=== PATIENT | female | born 1950 | race Two or more races ===

== ENCOUNTER 2018-06-08 00:16 | Emergency (ER) | payer OTHER ==
[~2018-06-08] VITALS: Ht 157.5 cm; Wt 68.9 kg
[~2018-06-08 00:16] MED LIST: AVAPRO150 MG PO; CATAPRES0.1 MG; NORFLEX100 MG PO; NORVASC2.5 M1 PO; SYNTHROID75 MCG PO; TORADOL10 MG PO
== END 2018-06-08 03:01 | disposition home or self-care (01) ==
LOC: ER 00:16
DX: I10 Essential (primary) hypertension (principal); R07.89 Other chest pain

== ENCOUNTER 2018-07-14 08:03 | Outpatient (CLI) | payer OTHER | END 2018-07-14 08:18 | disposition home or self-care (01) | LOC: SONOGRAMA 08:03 | DX: E03.8 Other specified hypothyroidism (principal); E04.8 Other specified nontoxic goiter ==

== ENCOUNTER 2018-12-21 10:14 | Outpatient (CLI) | payer OTHER | END 2018-12-21 10:23 | disposition home or self-care (01) | LOC: RAD 501 10:14 | DX: S83.207S Unspecified tear of unspecified meniscus, current injury, left knee, sequela (principal) ==

== ENCOUNTER → 2019-01-05 | Outpatient (CLI) | payer OTHER | END | disposition home or self-care (01) | LOC: NUCLEAR 10:00 | DX: M81.0 Age-related osteoporosis without current pathological fracture (principal) ==

== ENCOUNTER 2019-09-13 09:04 | Outpatient (CLI) | payer OTHER | END 2019-09-13 09:08 | disposition home or self-care (01) | LOC: MAMO-SONO 09:04 | DX: Z12.31 Encounter for screening mammogram for malignant neoplasm of breast (principal); Z87.898 Personal history of other specified conditions; N63.10 Unspecified lump in the right breast, unspecified quadrant; N63.20 Unspecified lump in the left breast, unspecified quadrant ==

== ENCOUNTER 2019-09-20 00:26 | Emergency (ER) | payer OTHER ==
[~2019-09-20] VITALS: Ht 157.5 cm; Wt 66.7 kg
[2019-09-20] MEDS ORDERED: NAPROXEN SODIU220 M1 PO (00:45)
[2019-09-20] MEDS ORDERED: KETO10TA2 PO (01:19)
== END 2019-09-20 01:56 | disposition home or self-care (01) ==
LOC: ER 00:26
DX: G89.11 Acute pain due to trauma (principal); M25.561 Pain in right knee

== ENCOUNTER 2019-09-21 10:40 | Outpatient (CLI) | payer OTHER ==
[~2019-09-21 10:40] MED LIST changes: +KETO10TA2 PO; +NAPROXEN SODIU220 M1 PO
== END 2019-09-21 10:45 | disposition home or self-care (01) ==
LOC: RAD 10:40
DX: M79.672 Pain in left foot (principal); M79.671 Pain in right foot; M54.5 Low back pain

== ENCOUNTER 2019-12-13 09:34 | Outpatient (CLI) | payer OTHER | END 2019-12-13 10:00 | disposition home or self-care (01) | LOC: MRI 09:34 | DX: M25.561 Pain in right knee (principal); M54.40 Lumbago with sciatica, unspecified side | CPT/HCPCS: 72148; 73721 ==

== ENCOUNTER 2020-01-06 10:17 | Outpatient (CLI) | payer OTHER | END 2020-01-06 10:19 | disposition home or self-care (01) | LOC: SONOGRAMA 10:17 | DX: E03.8 Other specified hypothyroidism (principal); E04.2 Nontoxic multinodular goiter ==

== ENCOUNTER 2020-07-04 09:54 | Outpatient (CLI) | payer OTHER | END 2020-07-04 09:59 | disposition home or self-care (01) | LOC: RAD 09:54 | DX: M81.8 Other osteoporosis without current pathological fracture (principal) ==

== ENCOUNTER 2020-11-13 10:08 | Outpatient (CLI) | payer OTHER | END 2020-11-13 10:23 | disposition home or self-care (01) | LOC: NUCLEAR 10:08 | DX: M81.0 Age-related osteoporosis without current pathological fracture (principal) ==

== ENCOUNTER 2021-02-11 08:46 | Outpatient (CLI) | payer OTHER | END 2021-02-11 08:57 | disposition home or self-care (01) | LOC: SONOGRAMA 08:46 | DX: R31.1 Benign essential microscopic hematuria (principal); N28.89 Other specified disorders of kidney and ureter ==

== ENCOUNTER 2021-03-06 07:57 | Outpatient (CLI) | payer OTHER | END 2021-03-06 08:07 | disposition home or self-care (01) | LOC: RAD 07:57 | PROVIDERS: ATTEND Internal Medicine | DX: M25.552 Pain in left hip (principal) ==

== ENCOUNTER 2021-04-01 07:47 | Outpatient (CLI) | payer OTHER | END 2021-04-01 08:26 | disposition home or self-care (01) | LOC: TOM 07:47 | PROVIDERS: ATTEND Internal Medicine Gastroenterology | DX: K56.600 Partial intestinal obstruction, unspecified as to cause (principal); D12.3 Benign neoplasm of transverse colon; K57.30 Diverticulosis of large intestine without perforation or abscess without bleeding ==

== ENCOUNTER 2021-06-17 07:59 | Outpatient (CLI) | payer OTHER | END 2021-06-17 08:00 | disposition home or self-care (01) | LOC: NUCLEAR 07:59 | DX: I73.9 Peripheral vascular disease, unspecified (principal) ==

== ENCOUNTER 2021-06-21 07:12 | Day surgery (SDC) | payer OTHER | END 2021-06-21 12:20 | disposition home or self-care (01) | LOC: AMB-ENDOS 07:12 | PROVIDERS: ATTEND Colon & Rectal Surgery | DX: K52.89 Other specified noninfective gastroenteritis and colitis (principal); K64.1 Second degree hemorrhoids; Z20.822 Contact with and (suspected) exposure to COVID-19 ==

== ENCOUNTER 2021-10-10 08:10 | Outpatient (CLI) | payer OTHER | END 2021-10-10 08:16 | disposition home or self-care (01) | LOC: RAD 08:10 | PROVIDERS: ATTEND Internal Medicine | DX: M25.561 Pain in right knee (principal); M25.551 Pain in right hip ==

== ENCOUNTER 2023-08-27 07:31 | Outpatient (CLI) | payer OTHER | END 2023-08-27 07:46 | disposition home or self-care (01) | LOC: RAD 07:31 | PROVIDERS: ATTEND Orthopaedic Surgery | DX: M54.59 Other low back pain (principal); M17.12 Unilateral primary osteoarthritis, left knee | CPT/HCPCS: 72148 ==

== ENCOUNTER → 2023-08-31 | Outpatient (CLI) | payer OTHER | END | disposition home or self-care (01) | LOC: MRI 13:11 | PROVIDERS: ATTEND Internal Medicine | DX: M25.561 Pain in right knee (principal); M25.562 Pain in left knee | CPT/HCPCS: 73721 ==

== ENCOUNTER 2023-11-16 10:02 | Outpatient (CLI) | payer OTHER | END 2023-11-16 10:09 | disposition home or self-care (01) | LOC: SONOGRAMA 10:02 | DX: E03.8 Other specified hypothyroidism (principal) ==

== ENCOUNTER 2025-01-23 10:06 | Emergency (ER) | payer OTHER ==
[~2025-01-23] VITALS: Ht 170.2 cm; Wt 63.5 kg
[2025-01-23] MEDS ORDERED: ALPRAZOLAM OD0.25 MG PO (10:18)
[2025-01-23] MEDS ORDERED: LOTREL 10-20 M1 EACH PO (10:19)
[2025-01-23 12:43] LABS: HEMATOCRIT 41.3 % (36.0-45.00); HEMOGLOBIN 13.3 g/dL (12.0-15.00); MEAN CELL VOLUME 78.7 fL (80.00-100.00); MEAN CORPUSCULAR HEMOGLOBIN 25.4 pg (27.00-32.0); MEAN CORPUSCULAR HGB CONC 32.3 g/dl (32.0-36.0); PLATELET COUNT 287 K/uL (150-450); RED BLOOD COUNT 5.25 M/uL (4.00-6.00)
[2025-01-23 13:55] LABS: URINE APPEARANCE Clear; URINE BILIRRUBIN Negative (NEGATIVE); URINE BLOOD Moderate; URINE COLOR Yellow; URINE GLUCOSE Negative (NEGATIVE); URINE KETONE 15 (NEGATIVE); URINE LEUKOCYTE Small; URINE NITRATE Negative; URINE PROTEIN Negative (NEGATIVE); URINE UROBILINOGEN 0.2 E.U./dl
[2025-01-23 13:59] LABS: URINE BACTERIA 341.4 uL (0.0-1933); URINE EPITHELIAL CELLS 17.5 uL (0.0-38.8); URINE RBC 39.7 uL (0.0-20.8); URINE WBC 37.6 uL (0.0-23.2)
[2025-01-23 14:08] LABS: CALCIUM 8.6 mg/dL (8.5-10.1); CREATININE SERUM 0.6 mg/dL (0.55-1.02); GFR 97.99; POTASSIUM 4.35 mEq/L (3.5-5.1)
[2025-01-23] MEDS ORDERED: LOPERAMIDE HCL 2 MG CAPSULE PO ONE ×2 (14:45→15:30)
== END 2025-01-23 16:47 | disposition home or self-care (01) ==
LOC: ER 10:06
PROVIDERS: Emergency Medicine
DX: K62.5 Hemorrhage of anus and rectum (principal)

== ENCOUNTER 2025-05-24 11:32 | Outpatient (CLI) | payer OTHER ==
[~2025-05-24 11:32] MED LIST changes: +ALPRAZOLAM OD0.25 MG PO; +LOTREL 10-20 M1 EACH PO
== END 2025-05-24 11:33 | disposition home or self-care (01) ==
LOC: NUCLEAR 11:32
DX: M81.0 Age-related osteoporosis without current pathological fracture (principal)